=== PATIENT | female | born 1965 | race American Indian/Alaskan Native ===

== ENCOUNTER 2017-11-27 08:16 | Outpatient (CLI) | payer OTHER ==
--- NOTE | 2017-11-27 14:36 | Mammography Report ---
BILATERAL DIGITAL SCREENING MAMMOGRAM with CAD: 11/27/17 08:16:00 CLINICAL: Routine screening. COMPARISON:11/22/15 FINDINGS: The breasts are almost entirely fatty. No mass, architectural distortion or suspicious calcifications. IMPRESSION: No mammographic evidence of malignancy. BI-RADS CATEGORY: 2 -- Benign RECOMMENDATION: Routine mammographic screening in one year. COMMENT: Patient follow-up letters are generated by our [employer] application.
== END 2017-11-27 08:17 | disposition home or self-care (01) ==
LOC: SPVWC 08:16
PROVIDERS: ATTEND Internal Medicine
DX: Z12.31 Encounter for screening mammogram for malignant neoplasm of breast (principal)
CPT/HCPCS: 77067

== ENCOUNTER 2021-10-12 10:26 | Outpatient (CLI) | payer OTHER ==
--- NOTE | 2021-10-12 14:44 | Mammography Report ---
BILATERAL DIGITAL DIAGNOSTIC MAMMOGRAM WITH CAD CONVENTIONAL, 10/12/2021 LEFT LIMITED BREAST ULTRASOUND CLINICAL INFORMATION / INDICATION: Patient presents for evaluation of skin changes on the right breas t and an area of focal pain in the left breast. N64.9 TECHNIQUE: Digital bilateral mammographic imaging was performed. Spot compression views were obtained . Limited ultrasound was performed. This examination was interpreted with the benefit of Computer-Aid ed Detection (CAD) analysis. COMPARISON: Prior mammogram 11/27/2017 FINDINGS: Breast Density: There are scattered areas of fibroglandular density. MAMMOGRAPHIC FINDINGS: No dominant mass, suspicious calcifications, or architectural distortion in th e right breast. There is no mammographic abnormality identified to account for reported right breast skin changes. There is a new 7 mm oval circumscribed mass in the 3:00 position of the left breast, po sterior depth, located approximately 10 cm from the nipple. Targeted ultrasound was performed for fur ther evaluation of this finding as well as the area of focal pain in the left breast. ULTRASOUND FINDINGS: Targeted ultrasound evaluation was performed of the area of interest. Correspo nding with the mammographic finding, there is a benign cyst in the left breast 3:00 position located 8 cm from the nipple measuring up to 6 x 4 x 5 mm. Two additional small benign cysts are seen in the 12:00 position located 4 cm from the nipple, the larger measuring up to 5 mm and the smaller measurin g up to 4 mm. A morphologically normal lymph node is seen in the left axilla. No suspicious sonograph ic abnormal the identified. IMPRESSION: 1. There are a few small benign cysts seen in the left breast. There is no suspicious mammographic or sonographic abnormality identified. There is no abnormality to account for the area of skin changes on the right or focal pain on the left, therefore clinical correlation is recommended. Follow up recommendation: Routine yearly screening mammogram. BI-RADS Category 2: BENIGN. A "normal" or negative report should not discourage follow up or biopsy of a clinically significant f inding. A written summary of these findings will be mailed to the patient. The patient will be entered into a mammography reporting system which will generate a reminder letter for the patient's next appointmen t at the appropriate interval. According to the [employer], yearly mammograms are recommended starting at age 40 and continuing as long as a woman is in good health. Breast MRI is recommended for women with an bernardo roximately 20-25% or greater lifetime risk of breast cancer, including women with a strong family his tory of breast or ovarian cancer and women who have been treated for Hodgkin's disease. Signer Name: Soraya Adams MD Signed: 10/12/2021 2:39 PM Workstation Name: [id number]
== END 2021-10-12 10:27 | disposition home or self-care (01) ==
LOC: SPVWC 10:26
PROVIDERS: ATTEND Internal Medicine
DX: N63.12 Unspecified lump in the right breast, upper inner quadrant (principal); N60.02 Solitary cyst of left breast
CPT/HCPCS: 77066